=== PATIENT | female | born 1975 | race Caucasian/White ===

== ENCOUNTER 2020-03-20 09:54 | Emergency (ER) | payer OTHER ==
[~2020-03-20] VITALS: Ht 160 cm; Wt 90.7 kg
[2020-03-20] MEDS ORDERED: ADDERALL 10 MG10 MG PO (10:12)
[2020-03-20] MEDS ORDERED: COZAAR 25 MG TA25 M1 PO (10:12)
[2020-03-20 11:28] LABS: ABSOLUTE BASOPHILS 0.1 thou/uL (0.0-0.2); ABSOLUTE EOSINOPHILS 0.2 thou/uL (0.0-0.7); ABSOLUTE LYMPHOCYTES 1.8 thou/uL (0.8-5.3); ABSOLUTE MONOCYTES 0.5 thou/uL (0.0-1.2); ABSOLUTE NEUTROPHILS 7.2 thou/uL (1.6-8.1); BASOPHILS 0.9 %; EOSINOPHILS 2.3 %; HEMATOCRIT 43.6 % (37.0-47.0); HEMOGLOBIN 14.6 gm/dL (12.0-15.0); LYMPHOCYTES 18.2 %; MCHC 33.4 g/dL (28.0-37.0); MCV 86.7 fL (80.0-100.0); MONOCYTES 5.4 %; MPV 8.9 fl. (7.2-11.1); NUCLEATED RBCS 0 /100WBC; PLATELET COUNT* 292 thou/uL (150-400); POLYS 73.2 %; RBC 5.03 mil/uL (4.20-5.00); RDW-CV 14.2 % (10.5-14.5); WBC 9.9 thou/uL (4.0-11.0)
[2020-03-20 11:42] LABS: CALCIUM 8.7 mg/dL (8.5-10.1); CREATININE 1.1 mg/dL (0.6-1.3); POTASSIUM 4.2 mmol/L (3.5-5.1)
[2020-03-20 11:47] LABS: ALBUMIN 3.6 g/dL (3.4-5.0); TOTAL BILIRUBIN 0.2 mg/dL (<0.1-1.0); TOTAL PROTEIN 6.8 g/dL (6.4-8.2)
[2020-03-20] MEDS ORDERED: HYDROCODON-ACE1 EAC7 PO (13:50)
[2020-03-20] MEDS ORDERED: ZOFRAN ODT4 MG DISSOLVE (13:50)
[2020-03-20 14:34] VITALS: BP 118/78
--- NOTE | 2020-03-20 15:12 | EKG ---
[place] [address] ELECTROCARDIOGRAM REPORT Name: RANDEE BAILEY 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
== END 2020-03-20 14:35 | disposition home or self-care (01) ==
LOC: M.ERS 09:54
PROVIDERS: Emergency Medicine Emergency Medical Services
DX: K80.50 Calculus of bile duct without cholangitis or cholecystitis without obstruction (principal); I10 Essential (primary) hypertension; Z90.710 Acquired absence of both cervix and uterus; Z79.899 Other long term (current) drug therapy

== ENCOUNTER → 2020-04-11 | Day surgery (SDC) | payer OTHER ==
[~2020-04-11] MED LIST: ADDERALL 10 MG10 MG PO; ADDERALL XR 3030 MG PO; COZAAR 25 MG TA25 M1 PO; HYDROCODON-ACE1 EAC7 PO; LOSARTAN POTAS100 MG PO; ZOFRAN ODT4 MG DISSOLVE
--- NOTE | 2020-04-16 18:06 | PATH ---
[address] [address] PATHOLOGY RPT PROCEDURE Name: BALTA BAILEY Room: [facility].#: [id number] Admission: 04/11/20 Date of : 75 Discharge: Report #: [id number] Path Case #: [id number] [facility] Accession Number: [id number] . 01 Material submitted: . gallbladder - GALLBLADDER AND CONTENTS . 01 Clinical history: . CHOLELITHIASIS . 02 Diagnosis: Gallbladder and contents: - Chronic cholecystitis and cholelithiasis with benign sentinel lymph node showing follicular hyperplasia. (NORBERTO:pit 04/16/2020) QTP 04/16/2020 1309 Local . 02 Electronically signed: . Bay Zimmerman MD, Pathologist NPI- [id number] . 01 Gross description: . The specimen is received in formalin, labeled "Balta Bailey, gallbladder and contents". Received is an intact gallbladder measuring 9.6 x 2.8 x 2.5 cm in greatest dimensions displaying a pink-nye serosal surface. Opening the specimen reveals a velvety, bile-stained mucosa with a gallbladder wall thickness of 0.1 cm. A single yellow-brown, nodular calculus is present, and no masses or lesions are noted grossly. Toward the proximal margin, a single lymph node is identified measuring 1.2 cm in maximum dimensions. [employer] sections, to include the proximal margin, are submitted in cassette A1. The lymph node is serially sectioned and entirely submitted in cassette A2. (CAA; 04/15/2020) QA/QA 04/15/2020 1321 Local . 02 Pathologist provided ICD-10: K80.10 . 02 CPT . 533772 Specimen Comment: A courtesy copy of this report has been sent to [phone] Specimen Comment: [phone] Specimen Comment: Report sent to / DR GALLARDO Performed at: [address] [facility], [place] [id number] MD Bobo Interiano MD Phone: [phone] [place] [address] PATHOLOGY RPT PROCEDURE Name: LEOBALTA E [id number]: 04/11/20 Date of : 75 Discharge: Report #: [id number] Path Case #: [id number] Performed at: [facility] [address], [place] [id number] MD Bay Zimmerman MD Phone: [phone]
--- NOTE | 2020-04-21 06:51 | OP ---
[facility] [address] [place] [address] OPERATIVE REPORT Name: RANDEE BAILEY Room: [facility].#: [id number] Admission: 04/11/20 Attend Phys: Eric Orlando Discharge: Date of : 75 Report #: [id number] THIS REPORT FOR: cc: Dieudonne Alves Bradley L. DO ~ Eric Orlando MD DATE OF SERVICE: 04/11/2020 PREOPERATIVE DIAGNOSIS: Symptomatic cholelithiasis. POSTOPERATIVE DIAGNOSIS: Symptomatic cholelithiasis. OPERATION: Laparoscopic cholecystectomy. SURGEON: Eric Orlando MD. ANESTHESIA: General. ESTIMATED BLOOD LOSS: Minimal. SPECIMEN: Gallbladder. DESCRIPTION OF PROCEDURE: After informed consent was obtained, the patient was brought to the operating room and placed supine. SCDs were placed and working, preoperative antibiotics were administered, general anesthesia was induced. The abdomen was prepped and draped in the usual sterile fashion. A 10 mm incision was made above the umbilicus. Fascia was incised and a trocar was placed. Pneumoperitoneum was established. Three right upper quadrant 5 mm ports were placed. Gallbladder was grasped at the fundus and retracted cephalad. Infundibulum was grasped and retracted laterally. I dissected out the cystic duct and the cystic artery. I dissected out the cystic plate. Cystic duct and artery were clipped and ligated leaving 2 clips on the remaining duct and 1 on the remaining artery. Gallbladder was then taken off the liver bed with electrocautery. It was placed into an Endopouch and removed. The fascia was then closed with a [id number] 0 Vicryl. Skin was closed with 4-0 Monocryl. Incisions were dressed with Steri-Strips. COMPLICATIONS: None. DISPOSITION: The patient was taken to recovery in satisfactory condition. <ELECTRONICALLY SIGNED> By: Eric Orlando MD 04/21/20 0651 1517 1536Eric Orlando MD /nt
== END | disposition home or self-care (01) ==
LOC: M.SUR 08:26
PROVIDERS: ATTEND Surgery
DX: K80.10 Calculus of gallbladder with chronic cholecystitis without obstruction (principal); R59.0 Localized enlarged lymph nodes; R10.11 Right upper quadrant pain; I10 Essential (primary) hypertension; F17.210 Nicotine dependence, cigarettes, uncomplicated; Z98.890 Other specified postprocedural states; Z79.899 Other long term (current) drug therapy; Z87.442 Personal history of urinary calculi; Z90.710 Acquired absence of both cervix and uterus; Z20.822 Contact with and (suspected) exposure to COVID-19; Z79.891 Long term (current) use of opiate analgesic